=== PATIENT | female | born 1965 | race Caucasian/White ===

== ENCOUNTER → 2016-08-25 | Outpatient (CLI) | payer MEDICARE, MEDICAID | LOC: WI 08:05 | PROVIDERS: ATTEND Student in an Organized Health Care Education/Training Program | DX: Z12.31 Encounter for screening mammogram for malignant neoplasm of breast (principal); M89.9 Disorder of bone, unspecified | CPT/HCPCS: 77080; G0202; 77067 ==

== ENCOUNTER 2016-12-15 10:42 | Emergency (ER) | payer MEDICARE, MEDICAID ==
[2016-12-15] MEDS ORDERED: ASPIRIN 81 MG TABLET, CHEWABLE PO ONE (12:05)
[2016-12-15] MEDS ORDERED: METOCLOPRAMIDE HCL ORAL SOLN 10 MG/10 ML UDCUP PO ONE (12:07)
[2016-12-15] MEDS ORDERED: MAG HYDROX/AL HYDROX/SIMETH SUSP 30 ML UDCUP PO ONE (12:07)
[2016-12-15] MEDS ORDERED: LIDOCAINE 2% VISCOUS SOLN 20 ML UDCUP PO ONE (12:07)
--- NOTE | 2016-12-15 12:07 | ER Document Report ---
ED Medical Screen (RME) - General Chief Complaint: Chest Pain Stated Complaint: CHEST PAIN/NAUSEA Time Seen by Provider: 12/15/16 11:59 Mode of Arrival: Ambulatory Information source: Patient TRAVEL OUTSIDE OF THE [place] IN LAST 30 DAYS: No - HPI Patient complains to provider of: chest pain Notes: 12/15/16 12:06 Is a 51-year-old female with a history of depression, high cholesterol, brain tumor, obstructive sleep apnea, who presents to the emergency room complaining of chest pain that started Thursday evening, radiates to her neck and her left arm, she reports a nonproductive cough, increased acid production and belching, she denies shortness of breath, but states that her chest pain worsens when she lays flat, patient has a history of similar symptoms previously in December 2015 at which time she was admitted to this hospital and evaluated for pain, cardiac enzymes 3 were negative at the time EKG is a normal sinus rhythm with no signs of acute ischemia - Related Data Allergies/Adverse Reactions: morphine [Morphine] Adverse Reaction (Severe, Verified 12/15/16 10:48) Cardiac arrest fluoxetine Adverse Reaction (Intermediate, Verified 12/15/16 10:48) feels weird Past Medical History - Past Medical History Cardiac Medical History: Reports: Hx Hypertension Denies: Hx Coronary Artery Disease, Hx Heart Attack Pulmonary Medical History: Reports: Hx Asthma - ON ALBUTEROL/SYMBICORT, Hx Bronchitis, Hx COPD, Hx Pneumonia Neurological Medical History: Reports: Hx Migraine. Denies: Hx Cerebrovascular Accident, Hx Seizures Renal/ Medical History: Denies: Hx Peritoneal Dialysis GI Medical History: Reports: Hx Gastroesophageal Reflux Disease Musculoskeltal Medical History: Reports Hx Arthritis Psychiatric Medical History: Reports: Hx Anxiety, Hx Depression Past Surgical History: Reports: Hx Abdominal Surgery - Ex lap for SBO, Hx Hysterectomy, Hx Neurologic Surgery - Craniotomy for benign brain mass - Immunizations Hx Diphtheria, Pertussis, Tetanus Vaccination: Yes Physical Exam - Vital signs Vitals: Temp Pulse Resp BP Pulse Ox 98.4 F 98 18 139/88 H 98 12/15/16 10:48 12/15/16 10:48 12/15/16 10:48 12/15/16 10:48 12/15/16 10:48 Course - Vital Signs Vital signs: Temp Pulse Resp BP Pulse Ox 98.4 F 98 18 139/88 H 98 12/15/16 10:48 12/15/16 10:48 12/15/16 10:48 12/15/16 10:48 12/15/16 10:48
--- NOTE | 2016-12-15 12:40 | RADIOLOGY REPORT (SQ) ---
EXAM DESCRIPTION: CHEST PA/LAT COMPLETED DATE/TIME: 12/15/2016 12:31 pm REASON FOR STUDY: cp COMPARISON: 01/13/2016 EXAM PARAMETERS: NUMBER OF VIEWS: two views TECHNIQUE: Digital Frontal and Lateral radiographic views of the chest acquired. RADIATION DOSE: NA LIMITATIONS: none FINDINGS: LUNGS AND PLEURA: No opacities, masses or pneumothorax. No pleural effusion. MEDIASTINUM AND HILAR STRUCTURES: No masses or contour abnormalities. HEART AND VASCULAR STRUCTURES: Heart normal size. No evidence for failure. BONES: No acute findings. HARDWARE: None in the chest. OTHER: No other significant finding. IMPRESSION: NO SIGNIFICANT RADIOGRAPHIC FINDING IN THE CHEST. TECHNICAL DOCUMENTATION: JOB ID: [id number] [employer]- All Rights Reserved
[2016-12-15 13:15] LABS: ABSOLUTE BASOPHILS # (AUTO) 0.1 10^3/uL (0.0-0.2); ABSOLUTE EOSINOPHILS # (AUTO) 0.2 10^3/uL (0.0-0.6); ABSOLUTE LYMPHOCYTES (AUTO) 1.5 10^3/uL (0.5-4.7); ABSOLUTE MONOCYTES (AUTO) 0.5 10^3/uL (0.1-1.4); ABSOLUTE NEUT (AUTO) 6.2 10^3/uL (1.7-8.2); BASOPHILS % (AUTO) 1.2 % (0-2); EOSINOPHILS % (AUTO) 1.8 % (0-6); HEMATOCRIT 42.3 % (36.0-47.0); HEMOGLOBIN 13.7 g/dL (12.0-15.5); HGB HCT DIFFERENCE -1.2; LYMPHOCYTES % (AUTO) 17.6 % (13-45); MEAN CORPUSCULAR HEMOGLOBIN 28.1 pg (27.0-33.4); MEAN CORPUSCULAR HGB CONC 32.4 g/dL (32.0-36.0); MEAN CORPUSCULAR VOLUME 87 fl (80-97); MONOCYTES % (AUTO) 5.8 % (3-13); RED BLOOD COUNT 4.87 10^6/uL (3.72-5.28); RED CELL DISTRIBUTION WIDTH 13.6 % (11.5-14.0); SEGMENTED NEUTROPHILS % (AUTO) 73.6 % (42-78); WHITE BLOOD COUNT 8.5 10^3/uL (4.0-10.5)
[2016-12-15 13:44] LABS: BLOOD UREA NITROGEN 9 mg/dL (7-20); CALCIUM 10.4 mg/dL (8.4-10.2); CREATININE RESULT 0.84 mg/dL (0.52-1.25); GLUCOSE 93 mg/dL (75-110)
[2016-12-15 13:45] LABS: ALANINE AMINOTRANSFERASE 33 U/L (9-52); ALBUMIN 4.8 g/dL (3.5-5.0); ALKALINE PHOSPHATASE 136 U/L (38-126); ANION GAP 14 (5-19); ASPARTATE AMINO TRANSFERASE 36 U/L (14-36); BILIRUBIN,DIRECT 0.4 mg/dL (0.0-0.4); BILIRUBIN,TOTAL 0.6 mg/dL (0.2-1.3); CARBON DIOXIDE 21 mmol/L (22-30); CHLORIDE 107 mmol/L (98-107); CREATINE KINASE 284 U/L (30-135); POTASSIUM 4.4 mmol/L (3.6-5.0)
[2016-12-15 13:50] LABS: CREATINE KINASE MB 2.07 ng/mL (<4.55)
[2016-12-15 13:54] LABS: TROPONIN I < 0.012 ng/mL
--- NOTE | 2016-12-15 15:43 | ER Document Report ---
ED Cardiac <VANNESAGEOFFREY - Last Filed: 12/15/16 15:46> - General Mode of Arrival: Ambulatory Information source: Patient TRAVEL OUTSIDE OF THE [place] IN LAST 30 DAYS: No - HPI Patient complains to provider of: Chest pain Chest pain radiation location: Left shoulder, Neck - left Associated symptoms: Other - see notes above <CAITIE HUGHES - Last Filed: 12/15/16 16:00> - General Chief Complaint: Chest Pain Stated Complaint: CHEST PAIN/NAUSEA Time Seen by Provider: 12/15/16 11:59 Notes: 51-year-old female with history of [place], hypertension, hyperlipidemia, and recurring benign pineal gland tumor presents to the ED complaining of left- sided chest pain that radiates to the left shoulder and up the left neck which started early yesterday. Patient reports that she was moving a kitchen table 5 days ago. Patient is also complaining of nausea and diarrhea for the past 2 days. Pain is exacerbated when laying flat. Patient also complaining of increasing heartburn secondary to GERD. Patient is on Dexilant and antacid for GERD. (CAITIE HUGHES) - Related Data Allergies/Adverse Reactions: morphine [Morphine] Adverse Reaction (Severe, Verified 12/15/16 10:48) Cardiac arrest fluoxetine Adverse Reaction (Intermediate, Verified 12/15/16 10:48) feels weird Past Medical History - General Information source: Patient - Social History Smoking Status: Unknown if Ever Smoked Family History: CAD Patient has suicidal ideation: No Patient has homicidal ideation: No - Past Medical History Cardiac Medical History: Reports: Hx Hypercholesterolemia, Hx Hypertension Pulmonary Medical History: Reports: Hx Asthma - ON ALBUTEROL/SYMBICORT, Hx Bronchitis, Hx COPD, Hx Pneumonia Neurological Medical History: Reports: Hx Migraine Renal/ Medical History: Denies: Hx Peritoneal Dialysis Malignancy Medical History: Reports: Other - Recurring benign pineal gland tumor GI Medical History: Reports: Hx Gastroesophageal Reflux Disease Musculoskeltal Medical History: Reports Hx Arthritis Psychiatric Medical History: Reports: Hx Anxiety, Hx Depression Past Surgical History: Reports: Hx Abdominal Surgery - Ex lap for SBO, Hx Hysterectomy, Hx Neurologic Surgery - Craniotomy for benign brain mass - Immunizations Hx Diphtheria, Pertussis, Tetanus Vaccination: Yes <CAITIE HUGHES - Last Filed: 12/15/16 16:00> Review of Systems - Review of Systems Constitutional: No symptoms reported EENT: No symptoms reported Cardiovascular: See HPI, Chest pain - Radiates to left shoulder and left neck Respiratory: No symptoms reported Gastrointestinal: See HPI, Diarrhea, Nausea Genitourinary: No symptoms reported Female Genitourinary: No symptoms reported Musculoskeletal: No symptoms reported Skin: No symptoms reported Hematologic/Lymphatic: No symptoms reported Neurological/Psychological: No symptoms reported -: Yes All other systems reviewed and negative <CAITIE HUGHES - Last Filed: 12/15/16 16:00> Physical Exam - General General appearance: Alert In distress: None - HEENT Head: Normocephalic, Atraumatic Eyes: Normal Extraocular movements intact: Yes Pupils: PERRL - Respiratory Respiratory status: No respiratory distress Chest status: Tender Breath sounds: Normal Chest palpation: Tender - Reproducible anterior left chest wall tenderness to palpation that radiates to the supraclaviular and deltoid area. No: Normal - Cardiovascular Rhythm: Regular Heart sounds: Normal auscultation - Abdominal Inspection: Normal Distension: No distension Tenderness: Nontender - Back Back: Normal - Extremities General upper extremity: Normal inspection, Normal ROM General lower extremity: Normal inspection, Normal ROM - Neurological Neuro grossly intact: Yes - Psychological Associated symptoms: Normal affect, Normal mood - Skin Skin Temperature: Warm Skin Moisture: Dry Skin Color: Normal <CAITIE HUGHES - Last Filed: 12/15/16 16:00> - Vital signs Vitals: Temp Pulse Resp BP Pulse Ox 98.4 F 98 18 139/88 H 98 12/15/16 10:48 12/15/16 10:48 12/15/16 10:48 12/15/16 10:48 12/15/16 10:48 Course - Laboratory Result Diagrams: 12/15/16 12:50 12/15/16 12:50 <GEOFFREY GRANADO - Last Filed: 12/15/16 15:46> - Laboratory Result Diagrams: 12/15/16 12:50 12/15/16 12:50 <CAITIE HUGHES - Last Filed: 12/15/16 16:00> - Vital Signs Vital signs: Temp Pulse Resp BP Pulse Ox 98.4 F 98 18 139/88 H 98 12/15/16 10:48 12/15/16 10:48 12/15/16 10:48 12/15/16 10:48 12/15/16 10:48 - Laboratory Laboratory results interpreted by me: 12/15/16 12:50 Carbon Dioxide 21 L Calcium 10.4 H Alkaline Phosphatase 136 H Creatine Kinase 284 H Discharge <GEOFFREY GRANADO - Last Filed: 12/15/16 15:46> <CAITIE HUGHES - Last Filed: 12/15/16 16:00> - Discharge Clinical Impression: Acute chest wall pain, Reflux esophagitis Additional Instructions: Chest Wall Pain: Your chest pain has been diagnosed as coming from the chest wall. This is often caused by straining the muscles or joints in the chest during physical activity, direct trauma, coughing, or vigorous vomiting. Persons with arthritis are especially prone to this type of pain, due to inflammation of the cartilage joints near the breast bone. Occasionally, no cause can be found. Rest from strenuous physical activity. This kind of chest pain is usually made worse by movement of the chest. Depending on the symptoms, we may prescribe medicine for pain, muscle relaxation, and antiinflammatory effects. If the pain is new, and seems to be due to muscle strain, cold packs can help. Otherwise, apply gentle warmth to the painful area for 15 minutes every hour or two. You should contact the doctor immediately if things change. Further evaluation is needed if you develop a fever or cough, if the nature of the pain changes, or if you become short of breath. Referrals: ARACELI PERSON, [NO LOCAL MD] - Follow up as needed Scribe Attestation: 12/15/16 15:47 I personally performed the services described in the documentation, reviewed and edited the documentation which was dictated to the scribe in my presence, and it accurately records my words and actions. (GEOFFREY GRANADO) Scribe Documentation - Scribe Written by Alysa:: Alysa Luu, 12/15/2016 1600 acting as scribe for :: Vannesa <CAITIE HUGHES - Last Filed: 12/15/16 16:00>
[2016-12-15 15:58] VITALS: BP 126/94
--- NOTE | 2016-12-15 17:58 | EKG REPORT ---
SEVERITY:- BORDERLINE ECG - SINUS RHYTHM BORDERLINE T ABNORMALITIES, DIFFUSE LEADS : Confirmed by: Lin Riddle MD 15-Dec-2016 17:57:28
== END 2016-12-15 15:58 | disposition home or self-care (01) ==
LOC: ER 10:42
DX: K21.0 Gastro-esophageal reflux disease with esophagitis (principal); R07.89 Other chest pain; R11.0 Nausea; I25.2 Old myocardial infarction; E78.5 Hyperlipidemia, unspecified; M25.552 Pain in left hip; M54.2 Cervicalgia; R19.7 Diarrhea, unspecified
CPT/HCPCS: 93005; 99285; 36415; 82553; 82550; 85025; 80053; 84484; 71020; 93010; A9270 ×2; J3490

== ENCOUNTER 2017-09-15 11:08 | Observation (INO) | payer MEDICARE, MEDICAID ==
[2017-09-15] MEDS ORDERED: METOCLOPRAMIDE HCL INJ/PF 10 MG/2 ML SDV IV ONE ×2 (11:32→18:30)
[2017-09-15] MEDS ORDERED: DIPHENHYDRAMINE HCL 50 MG/ML VIAL IV ONE (11:32)
--- NOTE | 2017-09-15 11:34 | ER Document Report ---
ED Medical Screen (RME) - General Chief Complaint: Headache Stated Complaint: fevers,HEADACHES Time Seen by Provider: 09/15/17 11:31 Mode of Arrival: Wheelchair Information source: Patient Notes: This is a 52-year-old female presents to the ER with nausea, headache for the past 3 days. Patient does report subjective chills. She states she is not checked her temperature but she has felt like she may have had fever. She does report having [employer] in the past for a benign cranial mass which had been recurrent. TRAVEL OUTSIDE OF THE [place] IN LAST 30 DAYS: No - Related Data Allergies/Adverse Reactions: morphine [Morphine] Adverse Reaction (Severe, Verified 09/15/17 11:09) Cardiac arrest fluoxetine Adverse Reaction (Intermediate, Verified 09/15/17 11:09) feels weird Past Medical History - Social History Chew tobacco use (# tins/day): No Frequency of alcohol use: None Drug Abuse: None - Past Medical History Cardiac Medical History: Reports: Hx Hypercholesterolemia, Hx Hypertension Denies: Hx Coronary Artery Disease, Hx Heart Attack Pulmonary Medical History: Reports: Hx Asthma - ON ALBUTEROL/SYMBICORT, Hx Bronchitis, Hx COPD, Hx Pneumonia Neurological Medical History: Reports: Hx Migraine. Denies: Hx Cerebrovascular Accident, Hx Seizures Renal/ Medical History: Denies: Hx Peritoneal Dialysis GI Medical History: Reports: Hx Gastroesophageal Reflux Disease Musculoskeltal Medical History: Reports Hx Arthritis Psychiatric Medical History: Reports: Hx Anxiety, Hx Depression Past Surgical History: Reports: Hx Abdominal Surgery - Ex lap for SBO, Hx Hysterectomy, Hx Neurologic Surgery - Craniotomy for benign brain mass - Immunizations Hx Diphtheria, Pertussis, Tetanus Vaccination: Yes Physical Exam - Vital signs Vitals: Temp Pulse Resp BP Pulse Ox 98.5 F 81 16 131/92 H 98 09/15/17 11:11 09/15/17 11:11 09/15/17 11:11 09/15/17 11:11 09/15/17 11:11 Course - Vital Signs Vital signs: Temp Pulse Resp BP Pulse Ox 98.5 F 81 16 131/92 H 98 09/15/17 11:11 09/15/17 11:11 09/15/17 11:11 09/15/17 11:11 09/15/17 11:11
--- NOTE | 2017-09-15 12:07 | RADIOLOGY REPORT (SQ) ---
EXAM DESCRIPTION: CT HEAD WITHOUT COMPLETED DATE/TIME: 09/15/2017 11:57 am REASON FOR STUDY: [place], h/o mass COMPARISON: May 2014 TECHNIQUE: Axial images acquired through the brain without intravenous contrast. Images reviewed wi th bone, brain and subdural windows. All Images stored on PACS. All CT scanners at this facility use dose modulation, iterative reconstruction, and/or weight based d osing when appropriate to reduce radiation dose to as low as reasonably achievable (ALARA). [facility]: Dose Right [facility]: CareDose [facility]: Dose Right [facility]: Teradose 4D [facility]: [employer] RADIATION DOSE: mGy. LIMITATIONS: None. FINDINGS: VENTRICLES: Normal size and contour. CEREBRUM: No masses. No hemorrhage. No midline shift. No evidence for acute infarction. Normal gra y/white matter differentiation. No areas of low density in the white matter. CEREBELLUM: No masses. No hemorrhage. No alteration of density. No evidence for acute infarction. EXTRAAXIAL SPACES: No fluid collections. No masses. ORBITS AND GLOBE: No intra- or extraconal masses. Normal contour of globe without masses. CALVARIUM: No fracture. The previously described surgical changes with previous occipital craniotomy appears stable. PARANASAL SINUSES: No fluid or mucosal thickening. SOFT TISSUES: No mass or hematoma. OTHER: No other significant finding. IMPRESSION: No significant intracranial abnormalities were identified. Other findings as noted abov e EVIDENCE OF ACUTE STROKE: NO. COMMENT: Quality ID # [id number]: Final reports with documentation of one or more dose reduction techniques (e.g., Automated exposure control, adjustment of the mA and/or kV according to patient size, use of iterative reconstruction technique) TECHNICAL DOCUMENTATION: JOB ID: [id number] [employer]- All Rights Reserved Reading location - IP/workstation name: [email or web address]
[2017-09-15 12:08] LABS: ABSOLUTE BASOPHILS # (AUTO) 0.1 10^3/uL (0.0-0.2); ABSOLUTE EOSINOPHILS # (AUTO) 0.1 10^3/uL (0.0-0.6); ABSOLUTE LYMPHOCYTES (AUTO) 1.2 10^3/uL (0.5-4.7); ABSOLUTE MONOCYTES (AUTO) 0.3 10^3/uL (0.1-1.4); ABSOLUTE NEUT (AUTO) 4.2 10^3/uL (1.7-8.2); EOSINOPHILS % (AUTO) 2.1 % (0-6); HEMATOCRIT 44.1 % (36.0-47.0); HEMOGLOBIN 14.7 g/dL (12.0-15.5); MEAN CORPUSCULAR HEMOGLOBIN 28.2 pg (27.0-33.4); MEAN CORPUSCULAR HGB CONC 33.4 g/dL (32.0-36.0); MEAN CORPUSCULAR VOLUME 84 fl (80-97); MONOCYTES % (AUTO) 5.7 % (3-13); PLATELET COUNT 400 10^3/uL (150-450); RED BLOOD COUNT 5.23 10^6/uL (3.72-5.28); RED CELL DISTRIBUTION WIDTH 14.6 % (11.5-14.0); SEGMENTED NEUTROPHILS % (AUTO) 70.2 % (42-78); TOTAL CELLS COUNTED % (AUTO) 100 %
[2017-09-15 12:09] LABS: INTERNATIONAL RATION (INR) 0.86; PROTHROMBIN TIME 12.4 SEC (11.4-15.4)
[2017-09-15 12:26] LABS: ALANINE AMINOTRANSFERASE 33 U/L (9-52); ALBUMIN 4.7 g/dL (3.5-5.0); ALKALINE PHOSPHATASE 115 U/L (38-126); ANION GAP 13 (5-19); ASPARTATE AMINO TRANSFERASE 30 U/L (14-36); BILIRUBIN,DIRECT 0.4 mg/dL (0.0-0.4); BILIRUBIN,TOTAL 0.4 mg/dL (0.2-1.3); BLOOD UREA NITROGEN 10 mg/dL (7-20); CALCIUM 10.6 mg/dL (8.4-10.2); CARBON DIOXIDE 23 mmol/L (22-30); CHLORIDE 107 mmol/L (98-107); GLUCOSE 106 mg/dL (75-110); POTASSIUM 4.8 mmol/L (3.6-5.0); SODIUM 142.9 mmol/L (137-145); TOTAL PROTEIN 7.7 g/dL (6.3-8.2)
[2017-09-15] MEDS ORDERED: NORMAL SALINE 1000 ML 1,000 ML IV ONE (13:13)
[2017-09-15] MEDS ORDERED: ONDANSETRON HCL INJ/PF 4 MG/2 ML SDV IV ONE (13:13)
--- NOTE | 2017-09-15 13:22 | ER Document Report ---
ED General - General Chief Complaint: Headache Stated Complaint: fevers,HEADACHES Time Seen by Provider: 09/15/17 11:31 Mode of Arrival: Wheelchair Information source: Patient, Parent TRAVEL OUTSIDE OF THE [place] IN LAST 30 DAYS: No - HPI Notes: 52-year-old female with a past medical history of depression, hyperlipidemia and benign tumors presents today with complaints of a headache, nausea and chills for the last 2 days. 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 Has not seen her neurologist in 2 years, last MRI was 2 years ago. Patient tried [id number] ibuprofen at 08 100 this morning without relief. Patient reports she feels lethargic, tired. Patient does not have a thermometer at home but reports she felt "feverish". Denies fevers, chills, chest pain,palpitations, shortness of breath, dyspnea, vomiting, diarrhea, abdominal pain, hematuria,blurred vision, double vision, loss of vision, speech changes, LH, dizziness, syncope, headaches, wheezing, ST, URI, neck pain, weakness, bowel or bladder dysfunction, saddle anesthesia, muscle paralysis, weakness in bilateral upper or lower extremities equally or rash. Denies IV drug use. - Related Data Allergies/Adverse Reactions: morphine [Morphine] Adverse Reaction (Severe, Verified 09/15/17 11:09) Cardiac arrest fluoxetine Adverse Reaction (Intermediate, Verified 09/15/17 11:09) feels weird Past Medical History - General Information source: Patient - Social History Smoking Status: Former Smoker Chew tobacco use (# tins/day): No Frequency of alcohol use: None Drug Abuse: None Family History: CAD Patient has suicidal ideation: No Patient has homicidal ideation: No - Past Medical History Cardiac Medical History: Reports: Hx Hypercholesterolemia, Hx Hypertension Denies: Hx Coronary Artery Disease, Hx Heart Attack Pulmonary Medical History: Reports: Hx Asthma - ON ALBUTEROL/SYMBICORT, Hx Bronchitis, Hx COPD, Hx Pneumonia Neurological Medical History: Reports: Hx Migraine. Denies: Hx Cerebrovascular Accident, Hx Seizures Renal/ Medical History: Denies: Hx Peritoneal Dialysis GI Medical History: Reports: Hx Gastroesophageal Reflux Disease Musculoskeltal Medical History: Reports Hx Arthritis Psychiatric Medical History: Reports: Hx Anxiety, Hx Depression Past Surgical History: Reports: Hx Abdominal Surgery - Ex lap for SBO, Hx Hysterectomy, Hx Neurologic Surgery - Craniotomy for benign brain mass - Immunizations Hx Diphtheria, Pertussis, Tetanus Vaccination: Yes Review of Systems - Review of Systems Notes: REVIEW OF SYSTEMS: CONSTITUTIONAL : reports fever. chills, or sweats. Denies recent illness. EENT: Denies eye, ear, throat, or mouth pain or symptoms. Denies nasal or sinus congestion or discharge. Denies throat, tongue, or mouth swelling or difficulty swallowing. CARDIOVASCULAR: Denies chest pain. Denies palpitations or racing or irregular heart beat. Denies ankle edema. RESPIRATORY: Denies cough, cold, or chest congestion. Denies shortness of breath, difficulty breathing, or wheezing. GASTROINTESTINAL: Denies abdominal pain or distention. Denies nausea, vomiting , or diarrhea. Denies blood in vomitus, stools, or per rectum. Denies black, tarry stools. Denies constipation. GENITOURINARY: Denies difficulty urinating, painful urination, burning, frequency, blood in urine, or discharge. FEMALE GENITOURINARY: Denies vaginal bleeding, heavy or abnormal periods, irregular periods. Denies vaginal discharge or odor. MUSCULOSKELETAL: Denies back or neck pain or stiffness. Denies joint pain or swelling. SKIN: Denies rash, lesions or sores. HEMATOLOGIC : Denies easy bruising or bleeding. LYMPHATIC: Denies swollen, enlarged glands. NEUROLOGICAL: Denies confusion or altered mental status. Denies passing out or loss of consciousness. Denies dizziness or lightheadedness. Reports headache. Denies weakness or paralysis or loss of use of either side. Denies problems with gait or speech. Denies sensory loss, numbness, or tingling. Denies seizures. PSYCHIATRIC: Denies anxiety or stress. Denies depression, suicidal ideation, or homicidal ideation. ALL OTHER SYSTEMS REVIEWED AND NEGATIVE. PHYSICAL EXAMINATION: GENERAL: Well-appearing, well-nourished and in no acute distress. HEAD: Atraumatic, normocephalic. EYES: Right pupil 3 mm, left pupil 2 mm reactive. Extraocular movements intact , conjunctiva are normal. ENT: Nares patent, oropharynx clear without exudates. Moist mucous membranes. NECK: Normal range of motion, supple without lymphadenopathy LUNGS: Breath sounds clear to auscultation bilaterally and equal. No wheezes rales or rhonchi. HEART: Regular rate and rhythm without murmurs ABDOMEN: Soft, nontender, nondistended abdomen. No guarding, no rebound. No masses appreciated. Female : deferred Musculoskeletal: Normal range of motion, no pitting or edema. No cyanosis. NEUROLOGICAL: Cranial nerves grossly intact. Noted aphasia, left-sided ataxia, and left pronator drift, left leg, left-sided weakness, retail wireless sales representative 3 out of 5 on the left, 5 out of 5 on right bilateral upper extremities, bilateral lower extremities strength 5 out of 5 on right, 3 out of 5 on left. Noted dysmetria on left. Orientated 3. Normal motor and sensory function in bilateral upper and lower extremities equally. No facial droop noted. Tongue midline. Able to raise eyebrows and trunk shoulders. 2 point discrimination noted. No peripheral vision loss. PSYCH: Normal mood, normal affect. SKIN: Warm, Dry, normal turgor, no rashes or lesions noted. Dictation was performed using [employer] voice recognition software Physical Exam - Vital signs Vitals: Temp Pulse Resp BP Pulse Ox 98.5 F 81 16 131/92 H 98 09/15/17 11:11 09/15/17 11:11 09/15/17 11:11 09/15/17 11:11 09/15/17 11:11 Course - Re-evaluation Re-evalutation: A otherwise healthy 52-year-old female with a history of benign tumors presents today for complaints of headache, neck pain, nausea and fevers and chills 2 days. On clinical examination patient had focal neurological deficits with concerns of possible posterior stroke. MRA MRI of brain negative for any acute findings for stroke. CT head negative. CHARGER OPERATOR negative for any electrolyte this function, liver dysfunction. Pressures checked and 9, on the left 18, rate 17 to rule out any acute angle glaucoma. Consulted with Dr. Sarah Farnsworth, hospitalist, regarding admission for TIA, she would like this provider to consult with neurologist prior to admission to see if patient would require any other interventions. On reevaluation at 1600, patient's focal neurological deficits have all resolved. She is no longer aphasic, no ataxia noted, rate upper and lower extremities with equal strength bilaterally equally. No pronator drift noted on evaluation. Baby aspirin was held off due to patient needing a lumbar puncture due to patient having fevers, chills along with neck pain for the last 2 days even though she is currently without any leukocytosis and is afebrile Consulted with Dr. Chiu, neurologist at [facility] in [place], [place], consulted regarding patient's status at 1630. She advised to order a CTA neck with contrast and placed on baby aspirin and she likely had a posterior TIA. Patient was accepted into the IMCU unit for TIA. Vital signs remained stable. All questions and concerns from patient and regarding her admission answered by this provider. CSF studies normal. Patient verbalized an understanding of this and agree with plan of care. - Vital Signs Vital signs: Temp Pulse Resp BP Pulse Ox 97.6 F 81 19 130/75 H 98 09/15/17 16:22 09/15/17 11:11 09/15/17 16:22 09/15/17 16:22 09/15/17 16:22 - Laboratory Result Diagrams: 09/15/17 11:48 09/15/17 11:48 Laboratory results interpreted by me: 09/15/17 09/15/17 09/15/17 11:48 11:48 16:57 RDW 14.6 H Calcium 10.6 H Urine Blood SMALL H Discharge - Discharge Clinical Impression: TIA (transient ischemic attack) Qualifiers: Transient cerebral ischemia type: other Qualified Code(s): G45.8 - Other transient cerebral ischemic attacks and related syndromes Condition: Good Disposition: ADMITTED INPATIENT Admitting Provider: Hospitalist - Dr. Sarah Farnsworth Unit Admitted: [facility]
--- NOTE | 2017-09-15 14:49 | RADIOLOGY REPORT (SQ) ---
EXAM DESCRIPTION: MRA HEAD WITHOUT COMPLETED DATE/TIME: 09/15/2017 2:41 pm REASON FOR STUDY: aphasia,L pronator drift,L weakness, hx tumors COMPARISON: None. TECHNIQUE: Axial 3-D [id number] acquisition imaging performed through the brain in the area of t he [place]. Images reformatted using 3-D MIPS. LIMITATIONS: None. FINDINGS: SOURCE IMAGES: No unexpected findings on source images. No large masses. 3-D MIP: No aneurysm. No occlusions. No significant stenosis. OTHER: No other significant finding. IMPRESSION: NORMAL MRA OF THE [place]. TECHNICAL DOCUMENTATION: JOB ID: [id number] [employer]- All Rights Reserved Reading location - IP/workstation name: [email or web address]
--- NOTE | 2017-09-15 15:09 | RADIOLOGY REPORT (SQ) ---
EXAM DESCRIPTION: MRI HEAD COMBO COMPLETED DATE/TIME: 09/15/2017 2:53 pm REASON FOR STUDY: aphasia,L pronator drift,L weakness, hx tumors COMPARISON: CT brain 09/15/2017 MRA exam [place] of [place] 09/15/2017 TECHNIQUE: Multiplanar imaging includes noncontrasted T1, T2, FLAIR, diffusion with ADC map and post gadolinium contrast T1 sequences. Images stored on PACS. CONTRAST TYPE AND DOSE: 15 mL Multihance. RENAL FUNCTION: GFR > 60. LIMITATIONS: None. FINDINGS: ANATOMY: Normal vascular flow voids. Pituitary fossa normal. CSF SPACES: Normal in size and contour. No hemorrhage. CEREBRUM: Sulci and gyri normal in size and contour. Linear band of increased white matter signal on FLAIR imaging in the right frontal region, with overlying calvarial defect likely a tract from intra cranial pressure monitor used during prior surgery. No evidence of subacute hemorrhage, mass, or extr aaxial fluid collection. No abnormal enhancement post contrast. POSTERIOR FOSSA: Patient is post prior surgery for decompression of a Chiari 1 malformation. There i s been resection of the midline occipital bone along the posterior foramen magnum, and placement of a small titanium plate. Adjacent mild encephalomalacia of the posterior cerebellar midline structures . Normal appearance of the medulla and minnie, without mass effect on axial T2 images. Adequate CSF ar ound the medulla and minnie. No hemorrhage. No edema, masses, or mass effect. Internal auditory canals, cerebellopontine angles, m astoids normal. No abnormal enhancement post contrast. DIFFUSION IMAGING: Negative for acute or subacute infarction. ORBITS: No masses. Globes normal. PARANASAL SINUSES: No fluid levels. Mucosa normal. OTHER: No other significant finding. IMPRESSION: POST SUBOCCIPITAL CRANIOTOMY FOR DECOMPRESSION OF A CHIARI I MALFORMATION. OTHERWISE, UNREMARKABLE MRI OF THE BRAIN WITHOUT AND WITH INTRAVENOUS GADOLINIUM CONTRAST. EVIDENCE OF ACUTE STROKE: NO. TECHNICAL DOCUMENTATION: JOB ID: [id number] [employer]- All Rights Reserved Reading location - IP/workstation name: [email or web address]
[2017-09-15] MEDS ORDERED: ASPIRIN 325 MG TABLET PO ONE (17:02)
[2017-09-15] MEDS ORDERED: ACETAMINOPHEN 325 MG TABLET PO PRN (17:19)
[2017-09-15] MEDS ORDERED: ZOLPIDEM TARTRATE 5 MG TABLET PO PRN (17:19)
[2017-09-15] MEDS ORDERED: ONDANSETRON HCL INJ/PF 4 MG/2 ML SDV IV PRN (17:19)
--- NOTE | 2017-09-15 17:27 | RADIOLOGY REPORT (SQ) ---
EXAM DESCRIPTION: LUMBAR PUNCTURE COMPLETED DATE/TIME: 09/15/2017 5:14 pm REASON FOR STUDY: PAIGE, L sided weakness, stroke like symptoms COMPARISON: MRI brain, MRA exam [place] of [place] 09/15/2017 CT brain 09/23/2017 FLUOROSCOPY TIME: 9 seconds One digital images saved to PACS. TECHNIQUE: Fluoroscopic guided lumbar puncture. LIMITATIONS: None. PROCEDURE: After written consent and assessment were obtained, the patient was brought into the fluo roscopy room and placed prone on the table. The patient's lower back was prepped in a sterile fashio n and an entry site was selected under live fluoroscopic guidance. The entry site was anesthetized wi th 3 mL 1% lidocaine. A 22 gauge needle was advanced through the skin and into the thecal sac at the right paracentral L3-4 level. After approximately 6.5 ml was drained, the needle was removed and a st erile bandage was placed of the site. Specimens were sent to the lab for testing. A fluoroscopic sp ot image was saved to PACS confirming level access. FINDINGS: Clear CSF Opening pressure 15 cm of water. IMPRESSION: Lumbar puncture under fluoroscopy. No immediate complication. COMMENT: Patient medication list reviewed: Yes- Quality ID# 130:Eligible professional attests to doc umenting in the medical record they obtained, updated, or reviewed the patient's current medications. . Quality ID 145: Final reports for procedures using fluoroscopy that document radiation exposure bertha kimebrly, or exposure time and number of fluorographic images (if radiation exposure indices are not avail able) TECHNICAL DOCUMENTATION: JOB ID: [id number] [employer]- All Rights Reserved Reading location - IP/workstation name: [email or web address]-RR
[2017-09-15 17:32] LABS: APPEARANCE,URINE CLEAR; BILIRUBIN,URINE NEGATIVE (NEGATIVE); COLOR,URINE STRAW; GLUCOSE, URINE NEGATIVE (NEGATIVE); KETONES,URINE NEGATIVE (NEGATIVE); LEUKOCYTE ESTERASE,URINE NEGATIVE (NEGATIVE); NITRITE,URINE NEGATIVE (NEGATIVE); PROTEIN,URINE NEGATIVE (NEGATIVE); URINE SPECIFIC GRAVITY 1.014; UROBILINOGEN,URINE NEGATIVE mg/dL (<2.0)
[2017-09-15 17:46] LABS: URINE AMPHETAMINES SCREEN NEGATIVE; URINE BARBITURATES SCREEN NEGATIVE; URINE BENZODIAZEPINES SCREEN NEGATIVE; URINE COCAINE SCREEN NEGATIVE; URINE MARIJUANA (THC) SCREEN NEGATIVE; URINE METHADONE SCREEN NEGATIVE; URINE PHENCYCLIDINE SCREEN NEGATIVE
[2017-09-15 18:06] LABS: CSF TUBE NUMBER 3
[2017-09-15 18:07] LABS: APPEARANCE ALL TUBES CLEAR; COLOR ALL TUBES COLORLESS; RED BLOOD CELL,CSF 224 /uL (0-10); VOLUME TUBE 1 1.5 CC; VOLUME TUBE 2 1.5 CC; VOLUME TUBE 3 1.5 CC; VOLUME TUBE 4 1.5 CC
[2017-09-15] MEDS ORDERED: NORMAL SALINE 1000 ML 1,000 ML IV PRN (18:07)
[2017-09-15 18:08] LABS: WHITE BLOOD CELL,CSF 1 /uL (0-5)
[2017-09-15 18:19] LABS: GLUCOSE,CSF 57 mg/dL (40-70); PROTEIN,CSF 51 mg/dL (12-60)
--- NOTE | 2017-09-15 18:29 | PDOC H&P ---
History of Present Illness Admission Date/PCP: ARACELI PERSON DO September 15, 2017 Patient complains of: Headache for the past 3 days History of Present Illness: CIERRA SANTILLAN is a 52 year old female presented to ED complaining of headache mostly localized to the back of her head. Patient complained of fever , photophobia and nausea. She admits also having generalized weakness. She does have a history of migraine. Patient reports history of brain tumors and had undergone surgery. She is to follow-up with her neurologist (cannot remember his name) in November to see if she needs any further intervention. Patient admits that she is under a lot of stress at home because they are about 8 people living in her household and do not want to move out. Patient denies cough, shortness of breath, chest pain, abdominal pain. Patient had extensive workup in the emergency room since at the beginning the possibility of of a stroke was entertained. Also an LP was obtained. After consulting with [facility] neurologist a CTA of the neck was recommended to evaluate for the possibility of a posterior stroke which is still pending. Considering presentation our service was contacted and prompted to admit. Past Medical History Cardiac Medical History: Reports: Hyperlipidema, Hypertension Denies: Coronary Artery Disease, Myocardial Infarction Pulmonary Medical History: Reports: Asthma - ON ALBUTEROL/SYMBICORT, Bronchitis , Chronic Obstructive Pulmonary Disease (COPD), Pneumonia Neurological Medical History: Reports: Migraine, Other - Chiari malformation Denies: Seizures Endocrine Medical History: Reports: None Renal/ Medical History: Reports: None Malignancy Medical History: Reports: None GI Medical History: Reports: Gastroesophageal Reflux Disease Musculoskeltal Medical History: Reports: Arthritis Skin Medical History: Reports: None Psychiatric Medical History: Reports: Depression Traumatic Medical History: Reports: None Hematology: Denies: Anemia Infectious Medical History: Reports: None Past Surgical History Past Surgical History: Reports: Hysterectomy, Other - SBO Social History Information Source: Patient Lives with: Family Smoking Status: Former Smoker Frequency of Alcohol Use: None Hx Recreational Drug Use: No Drugs: None Hx Prescription Drug Abuse: No - Advance Directive Resuscitation Status: Full Code Family History Family History: CAD, DM, Hypertension, Malignancy Parental Family History Reviewed: Yes Children Family History Reviewed: Yes Sibling(s) Family History Reviewed.: Yes Medication/Allergy Home Medications: Dexlansoprazole [Dexilant 60 mg Capsule] 60 mg PO DAILY 04/04/13 Aspirin [Ecotrin 81 mg EC Tablet] 81 mg PO DAILY #30 tabec 01/14/16 Rosuvastatin Calcium [Crestor 20 mg Tablet] 20 mg PO QHS #30 tablet 01/14/16 Venlafaxine HCl [Effexor 75 mg Tablet] 150 mg PO DAILY #30 tablet 01/14/16 Allergies/Adverse Reactions: morphine [Morphine] Adverse Reaction (Severe, Verified 09/15/17 11:09) Cardiac arrest fluoxetine Adverse Reaction (Intermediate, Verified 09/15/17 11:09) feels weird Review of Systems Constitutional: PRESENT: chills, fever(s). ABSENT: weakness Eyes: PRESENT: visual disturbances Ears: ABSENT: hearing changes Nose, Mouth, and Throat: ABSENT: mouth pain, sore throat Cardiovascular: ABSENT: chest pain, dyspnea on exertion, edema, orthropnea Respiratory: ABSENT: cough, dyspnea Gastrointestinal: ABSENT: abdominal pain, nausea, vomiting Genitourinary: ABSENT: dysuria, hematuria Musculoskeletal: ABSENT: back pain, joint swelling, muscle weakness Integumentary: ABSENT: diaphoresis, lesions Neurological: PRESENT: abnormal speech, weakness. ABSENT: abnormal gait, abnormal movements, focal weakness Psychiatric: PRESENT: anxiety, depression Physical Exam Vital Signs: Temp Pulse Resp BP Pulse Ox 97.6 F 81 19 130/75 H 98 09/15/17 16:22 09/15/17 11:11 09/15/17 16:22 09/15/17 16:22 09/15/17 16:22 Intake & Output 09/14/17 09/15/17 09/16/17 06:59 06:59 06:59 Weight 71.8 kg General appearance: PRESENT: cooperative, well-developed, well-nourished Head exam: PRESENT: atraumatic, normocephalic Eye exam: PRESENT: conjunctival injection, EOMI, PERRLA, other - Minimal anisocoria. ABSENT: nystagmus, periorbital swelling Mouth exam: PRESENT: moist, neck supple, other - Tenderness upon palpation of paracervical muscles. FROM Neck exam: PRESENT: full ROM, tracheal deviation. ABSENT: JVD, lymphadenopathy , meningismus, tenderness Respiratory exam: PRESENT: clear to auscultation dean Cardiovascular exam: PRESENT: RRR. ABSENT: diastolic murmur, systolic murmur Vascular exam: PRESENT: normal capillary refill GI/Abdominal exam: PRESENT: normal bowel sounds, soft. ABSENT: tenderness Extremities exam: PRESENT: full ROM. ABSENT: pedal edema Musculoskeletal exam: PRESENT: ambulatory Neurological exam: PRESENT: alert, awake, oriented to person, oriented to place , oriented to time, oriented to situation, CN II-XII grossly intact Psychiatric exam: PRESENT: anxious Skin exam: PRESENT: normal color Results Laboratory Results: 09/15/17 11:48 09/15/17 11:48 09/15/17 09/15/17 09/15/17 11:48 11:48 15:21 WBC 6.0 RBC 5.23 Hgb 14.7 Hct 44.1 MCV 84 MCH 28.2 MCHC 33.4 RDW 14.6 H Plt Count 400 Seg Neutrophils % 70.2 Lymphocytes % 20.0 Monocytes % 5.7 Eosinophils % 2.1 Basophils % 2.0 Absolute Neutrophils 4.2 Absolute Lymphocytes 1.2 Absolute Monocytes 0.3 Absolute Eosinophils 0.1 Absolute Basophils 0.1 Sodium 142.9 Potassium 4.8 Chloride 107 Carbon Dioxide 23 Anion Gap 13 BUN 10 Creatinine 0.68 Est GFR ( Amer) > 60 Est GFR (Non-Af Amer) > 60 Glucose 106 Lactic Acid 0.7 Calcium 10.6 H Total Bilirubin 0.4 AST 30 ALT 33 Alkaline Phosphatase 115 Total Protein 7.7 Albumin 4.7 Urine Color Urine Appearance Urine pH Ur Specific [place] Urine Protein Urine Glucose (UA) Urine Ketones Urine Blood Urine Nitrite Ur Leukocyte Esterase Urine WBC (Auto) Urine RBC (Auto) 09/15/17 16:57 WBC RBC Hgb Hct MCV MCH MCHC RDW Plt Count Seg Neutrophils % Lymphocytes % Monocytes % Eosinophils % Basophils % Absolute Neutrophils Absolute Lymphocytes Absolute Monocytes Absolute Eosinophils Absolute Basophils Sodium Potassium Chloride Carbon Dioxide Anion Gap BUN Creatinine Est GFR ( Amer) Est GFR (Non-Af Amer) Glucose Lactic Acid Calcium Total Bilirubin AST ALT Alkaline Phosphatase Total Protein Albumin Urine Color STRAW Urine Appearance CLEAR Urine pH 5.0 Ur Specific [place] 1.014 Urine Protein NEGATIVE Urine Glucose (UA) NEGATIVE Urine Ketones NEGATIVE Urine Blood SMALL H Urine Nitrite NEGATIVE Ur Leukocyte Esterase NEGATIVE Urine WBC (Auto) 0 Urine RBC (Auto) 0 Impressions: Head CT 09/15/17 11:33 IMPRESSION: No significant intracranial abnormalities were identified. Other findings as noted above EVIDENCE OF ACUTE STROKE: NO. Brain MRI with MRA 09/15/17 13:11 IMPRESSION: NORMAL MRA OF THE [place]. Head MRI 09/15/17 13:11 IMPRESSION: POST SUBOCCIPITAL CRANIOTOMY FOR DECOMPRESSION OF A CHIARI I MALFORMATION. OTHERWISE, UNREMARKABLE MRI OF THE BRAIN WITHOUT AND WITH INTRAVENOUS GADOLINIUM CONTRAST. EVIDENCE OF ACUTE STROKE: NO. Lumbar Puncture 09/15/17 16:20 IMPRESSION: Lumbar puncture under fluoroscopy. No immediate complication. Assessment & Plan - Diagnosis (1) Headache Qualifiers: Headache type: tension-type Headache chronicity pattern: episodic headache Intractability: not intractable Qualified Code(s): G44.219 - Episodic tension-type headache, not intractable Is this a current diagnosis for this admission?: Yes Plan: Patient will be administer 1 L normal saline, Reglan IV, Toradol IV and Valium. Will follow up response will provide pain management. Will order carotid Dopplers an echocardiogram however presentation is not consistent with TIA as initially considered in emergency room. He will follow-up LP microbiology reports (2) Anxiety Is this a current diagnosis for this admission?: Yes Plan: Likely contributing to presentation (3) Depression Qualifiers: Depression Type: unspecified Qualified Code(s): F32.9 - Major depressive disorder, single episode, unspecified Is this a current diagnosis for this admission?: Yes Plan: Will continue with Effexor as outpatient - Time Time Spent: 50 to 70 Minutes Medications reviewed and adjusted accordingly: Yes Anticipated discharge: Home Within: within 24 hours - Inpatient Certification Based on my medical assessment, after consideration of the patient's comorbidities, presenting symptoms, or acuity I expect that the services needed warrant INPATIENT care.: No I certify that my determination is in accordance with my understanding of Medicare's requirements for reasonable and necessary INPATIENT services [42 CFR 412.3e].: Yes Medical Necessity: Need Close Monitoring Due to Risk of Patient Decompensation, Need For IV Fluids, Need For Continuous Telemetry Monitoring
[2017-09-15] MEDS ORDERED: DIAZEPAM INJ 10 MG/2 ML DISP.SYRIN IV ONE (18:30)
[2017-09-15] MEDS ORDERED: KETOROLAC TROMETHAMINE INJ/PF 30 MG/1 ML SDV IV ONE (18:30)
[2017-09-15] MEDS: OXYCODONE-ACETAMINOPHEN 5-325 MG TABLET PO PRN (21:16)
[2017-09-15] MEDS: HEPARIN SOD (PORCINE) 5,000 UNIT/ML 1 ML SYRINGE SUBCUT SCH (21:17)
--- NOTE | 2017-09-15 21:22 | RADIOLOGY REPORT (SQ) ---
EXAM DESCRIPTION: CTA NECK COMPLETED DATE/TIME: 09/15/2017 7:01 pm REASON FOR STUDY: TIA symptoms COMPARISON: MRI brain from earlier. TECHNIQUE: Axial dynamic scanning technique with dynamic contrast enhancement through the extra-scrap hoist operator nial carotid and vertebral arteries. Multiplanar reconstruction. 3-D MIPS and Volume-rendered imag es acquired at the workstation and saved to PACS. Images are reviewed in soft tissue, bone, lung w indows. All CT scanners at this facility use dose modulation, iterative reconstruction, and/or weight based d osing when appropriate to reduce radiation dose to as low as reasonably achievable (ALARA). [facility]: Dose Right [facility]: CareDose [facility]: Dose Right [facility]: Teradose 4D [facility]: Darudar CONTRAST TYPE AND DOSE: contrast/concentration: Isovue 370.00 mg/ml; Total Contrast Delivered: 70.0 ml; Total Saline Delivered: 75.0 ml RENAL FUNCTION: GFR > 60. LIMITATIONS: None. FINDINGS: AORTIC ARCH: Normal three-vessel origin. Bilateral subclavian arteries are patent. No d issection. RIGHT CAROTIDS: Patent common, internal and external carotid arteries without suggestion of significa nt stenosis or irregular plaque. No dissection. RIGHT VERTEBRAL: Patent. No dissection. LEFT CAROTIDS: Patent common, internal and external carotid arteries without suggestion of significan t stenosis or irregular plaque. No dissection. LEFT VERTEBRAL: Patent. No dissection. OTHER: No other significant finding. OTHER: 3-D reconstructions confirm findings. IMPRESSION: NORMAL CTA OF THE EXTRA-CRANIAL CAROTID AND VERTEBRAL ARTERIES. COMMENT: Quality ID #[id number]: Measurements of distal internal carotid diameter were used as the denomina tor for stenosis measurement. TECHNICAL DOCUMENTATION: JOB ID: [id number] Quality ID # [id number]: Final reports with documentation of one or more dose reduction techniques (e.g., Au tomated exposure control, adjustment of the mA and/or kV according to patient size, use of iterative reconstruction technique) 2010 [employer]- All Rights Reserved Reading location - IP/workstation name: [email or web address]
[2017-09-15] MEDS ORDERED: ATORVASTATIN CALCIUM 80 MG TABLET PO SCH (22:00)
[2017-09-16] MEDS ORDERED: DIPHENHYDRAMINE HCL 25 MG CAPSULE PO PRN (01:11)
[2017-09-16] MEDS: OXYCODONE-ACETAMINOPHEN 5-325 MG TABLET PO PRN ×2 (01:34→05:56)
[2017-09-16 05:36] LABS: ABSOLUTE BASOPHILS # (AUTO) 0.1 10^3/uL (0.0-0.2); ABSOLUTE EOSINOPHILS # (AUTO) 0.1 10^3/uL (0.0-0.6); ABSOLUTE LYMPHOCYTES (AUTO) 1.4 10^3/uL (0.5-4.7); ABSOLUTE MONOCYTES (AUTO) 0.3 10^3/uL (0.1-1.4); ABSOLUTE NEUT (AUTO) 2.6 10^3/uL (1.7-8.2); BASOPHILS % (AUTO) 1.5 % (0-2); EOSINOPHILS % (AUTO) 2.2 % (0-6); HEMATOCRIT 38.5 % (36.0-47.0); HEMOGLOBIN 12.9 g/dL (12.0-15.5); LYMPHOCYTES % (AUTO) 30.1 % (13-45); MEAN CORPUSCULAR HEMOGLOBIN 28.3 pg (27.0-33.4); MEAN CORPUSCULAR HGB CONC 33.4 g/dL (32.0-36.0); MEAN CORPUSCULAR VOLUME 85 fl (80-97); MONOCYTES % (AUTO) 7.3 % (3-13); PLATELET COUNT 255 10^3/uL (150-450); RED BLOOD COUNT 4.55 10^6/uL (3.72-5.28); RED CELL DISTRIBUTION WIDTH 14.1 % (11.5-14.0); SEGMENTED NEUTROPHILS % (AUTO) 58.9 % (42-78); TOTAL CELLS COUNTED % (AUTO) 100 %; WHITE BLOOD COUNT 4.5 10^3/uL (4.0-10.5)
[2017-09-16] MEDS: HEPARIN SOD (PORCINE) 5,000 UNIT/ML 1 ML SYRINGE SUBCUT SCH (05:56)
[2017-09-16 06:03] LABS: ANION GAP 11 (5-19); BLOOD UREA NITROGEN 10 mg/dL (7-20); CALCIUM 9.8 mg/dL (8.4-10.2); CARBON DIOXIDE 25 mmol/L (22-30); CHLORIDE 105 mmol/L (98-107); GLUCOSE 85 mg/dL (75-110); POTASSIUM 4.1 mmol/L (3.6-5.0); SODIUM 141.2 mmol/L (137-145)
[2017-09-16 08:31] VITALS: BP 120/78
[2017-09-16] MEDS ORDERED: DOCUSATE SODIUM 100 MG CAPSULE PO SCH (10:00)
[2017-09-16] MEDS ORDERED: ASPIRIN 325 MG TABLET PO SCH (10:00)
--- NOTE | 2017-09-16 15:06 | PDOC DISCHARGE SUMMARY ---
General - Admit/Disc Date/PCP Admission Date/Primary Care Provider: 09/15/17 18:08 ARACELI PERSON, Discharge Date: 09/16/17 - Discharge Diagnosis (1) Headache Is this a current diagnosis for this admission?: Yes (2) Anxiety Is this a current diagnosis for this admission?: Yes (3) Depression Is this a current diagnosis for this admission?: Yes (4) History of Chiari malformation Is this a current diagnosis for this admission?: Yes (5) History of migraine Is this a current diagnosis for this admission?: Yes - Additional Information Resuscitation Status: Full Code Discharge Diet: Cardiac Discharge Activity: Activity As Tolerated Prescriptions: Butalbital/Aspirin/Caffeine [Fiorinal 50-325-40 mg Capsule] 1 cap PO Q4 PRN #30 cap PRN Reason: Tizanidine HCl [Zanaflex 4 Mg Tablet] 4 mg PO Q8H #15 tablet Home Medications: Dexlansoprazole [Dexilant 60 mg Capsule] 60 mg PO DAILY 04/04/13 Venlafaxine HCl [Effexor 75 mg Tablet] 150 mg PO DAILY #30 tablet 01/14/16 Aspirin [Ecotrin 81 mg EC Tablet] 81 mg PO DAILYP PRN 09/15/17 Furosemide 20 mg PO DAILYP PRN 09/15/17 Rosuvastatin Calcium [Crestor 20 mg Tablet] 20 mg PO DAILY 09/15/17 Butalbital/Aspirin/Caffeine [Fiorinal 50-325-40 mg Capsule] 1 cap PO Q4 PRN #30 cap 09/16/17 Tizanidine HCl [Zanaflex 4 Mg Tablet] 4 mg PO Q8H #15 tablet 09/16/17 History of Present Illness History of Present Illness: CIERRA SANTILLAN is a 52 year old female presented to ED complaining of headache mostly localized to the back of her head. Patient complained of fever , photophobia and nausea. She related having generalized weakness. She does have a history of migraine. Patient reported history of brain tumors and had undergone surgery. She is to follow-up with her neurologist (cannot remember his name) in November to see if she needs any further intervention. Patient related that she is under a lot of stress at home because they are about 8 people living in her household and do not want to move out. Patient denied cough, shortness of breath, chest pain, abdominal pain. Patient had extensive workup in the emergency room since at the beginning the possibility of of a stroke was entertained. Also an LP was obtained. After [facility] neurologist was consulted eventually and a CTA of the neck was recommended to evaluate for the possibility of a posterior stroke which was pending at the time of admission. Considering presentation our service was contacted and prompted to admit. Hospital Course Hospital Course: Patient was admitted to telemetry unit and remained stable. Patient's symptoms improved after she was treated with Toradol IV, Reglan IV, IV fluids and Valium p.o. On the day of discharge patient reported that pain was better and she was ready to be discharged. On the day of discharge prescribed Fioricet and muscle relaxer. Examination and workup was negative for TIA. Patient has also been advised as to follow-up with her primary care provider. Since patient had achieved maximum benefit of hospitalization stay prompted to discharge under stable condition. Physical Exam Vital Signs: Temp Pulse Resp BP Pulse Ox 97.5 F 72 12 108/73 100 09/16/17 04:36 09/16/17 04:36 09/16/17 04:36 09/16/17 04:36 09/16/17 04:36 Intake & Output 09/14/17 09/15/17 09/16/17 06:59 06:59 06:59 Intake Total 700 Balance 700 Weight 67.5 kg General appearance: PRESENT: cooperative, mild distress Head exam: PRESENT: atraumatic, normocephalic Eye exam: PRESENT: conjunctiva pink, EOMI, PERRLA Ear exam: PRESENT: normal external ear exam Mouth exam: PRESENT: moist Neck exam: PRESENT: full ROM. ABSENT: carotid bruit, JVD, lymphadenopathy, meningismus, tenderness, thyromegaly, tracheal deviation Respiratory exam: PRESENT: clear to auscultation dean Cardiovascular exam: PRESENT: RRR. ABSENT: diastolic murmur, systolic murmur Vascular exam: PRESENT: normal capillary refill GI/Abdominal exam: PRESENT: normal bowel sounds, soft. ABSENT: tenderness Extremities exam: PRESENT: full ROM. ABSENT: pedal edema Musculoskeletal exam: PRESENT: ambulatory Neurological exam: PRESENT: alert, awake, oriented to person, oriented to place , oriented to time, oriented to situation, CN II-XII grossly intact Psychiatric exam: PRESENT: depressed Skin exam: PRESENT: intact, normal color Results Laboratory Results: 09/16/17 04:18 09/16/17 04:18 09/16/17 09/16/17 04:18 04:18 WBC 4.5 RBC 4.55 Hgb 12.9 Hct 38.5 MCV 85 MCH 28.3 MCHC 33.4 RDW 14.1 H Plt Count 255 Seg Neutrophils % 58.9 Lymphocytes % 30.1 Monocytes % 7.3 Eosinophils % 2.2 Basophils % 1.5 Absolute Neutrophils 2.6 Absolute Lymphocytes 1.4 Absolute Monocytes 0.3 Absolute Eosinophils 0.1 Absolute Basophils 0.1 Sodium 141.2 Potassium 4.1 Chloride 105 Carbon Dioxide 25 Anion Gap 11 BUN 10 Creatinine 0.77 Est GFR ( Amer) > 60 Est GFR (Non-Af Amer) > 60 Glucose 85 Calcium 9.8 Magnesium 2.1 Impressions: Head CT 09/15/17 11:33 IMPRESSION: No significant intracranial abnormalities were identified. Other findings as noted above EVIDENCE OF ACUTE STROKE: NO. Brain MRI with MRA 09/15/17 13:11 IMPRESSION: NORMAL MRA OF THE [place]. Head MRI 09/15/17 13:11 IMPRESSION: POST SUBOCCIPITAL CRANIOTOMY FOR DECOMPRESSION OF A CHIARI I MALFORMATION. OTHERWISE, UNREMARKABLE MRI OF THE BRAIN WITHOUT AND WITH INTRAVENOUS GADOLINIUM CONTRAST. EVIDENCE OF ACUTE STROKE: NO. Lumbar Puncture 09/15/17 16:20 IMPRESSION: Lumbar puncture under fluoroscopy. No immediate complication. Neck CTA 09/15/17 17:07 IMPRESSION: NORMAL CTA OF THE EXTRA-CRANIAL CAROTID AND VERTEBRAL ARTERIES. Qualifiers - * PATEINT BEING DISCHARGED WITH ANY OF THE FOLLOWING DIAGNOSIS?: No Plan Discharge Plan: Less than 30 minutes Time Spent: Less than 30 Minutes
== END 2017-09-16 09:06 | disposition home or self-care (01) ==
LOC: ER 11:08 → INTOOBSV 18:08 → EH 18:08 → 3N 20:51
PROVIDERS: ADMIT Emergency Medicine; ATTEND Emergency Medicine
PROC: 009U3ZX Drainage of Spinal Canal, Percutaneous Approach, Diagnostic (ICD-10-PCS; principal; 2017-09-15)
PROC: B01BZZZ Fluoroscopy of Spinal Cord (ICD-10-PCS; 2017-09-15)
DX: G44.219 Episodic tension-type headache, not intractable (principal); F41.9 Anxiety disorder, unspecified; F32.9 Major depressive disorder, single episode, unspecified; H53.149 Visual discomfort, unspecified; Z86.69 Personal history of other diseases of the nervous system and sense organs; R50.9 Fever, unspecified; R11.0 Nausea; R53.1 Weakness; R53.83 Other fatigue; R47.01 Aphasia; R27.0 Ataxia, unspecified; R27.8 Other lack of coordination; J44.9 Chronic obstructive pulmonary disease, unspecified; M54.2 Cervicalgia; Z86.011 Personal history of benign neoplasm of the brain; Z98.890 Other specified postprocedural states; Z90.710 Acquired absence of both cervix and uterus; Z87.891 Personal history of nicotine dependence
CPT/HCPCS: 99285; 96361; 96374; 96375; 36415 ×2; 87070; 87205; 83605; 83735; 85025 ×2; 85610; 89050; 82945; 84157; 80048; 80053; 81001; 80307; 70553; 70544; 62270; 70450; 70498; G0378 ×3; A9577; A9270 ×5; J1644 ×2; J3360; J1200; J1885; J2765; J2405; J7030

== ENCOUNTER → 2018-07-05 | Outpatient (CLI) | payer MEDICAID, MEDICARE ==
--- NOTE | 2018-07-05 10:59 | RADIOLOGY REPORT (SQ) ---
EXAM DESCRIPTION: T SPINE AP/LAT COMPLETED DATE/TIME: 07/05/2018 9:59 am REASON FOR STUDY: THORACIC BACK PAIN COMPARISON: None. NUMBER OF VIEWS: Two views. TECHNIQUE: AP and lateral radiographic images acquired of the thoracic spine. LIMITATIONS: None. FINDINGS: MINERALIZATION: Normal. ALIGNMENT: Normal. No scoliosis. VERTEBRAE: No fracture or bone lesion. Maintained height, normal segmentation. DISCS: No significant loss of height or significant narrowing. No large osteophytes. HARDWARE: None in the spine. MEDIASTINUM AND SOFT TISSUES: Normal heart size and aortic contour. No soft tissue abnormality. VISUALIZED LUNG COE: Clear. OTHER: No other significant finding. IMPRESSION: NO SIGNIFICANT RADIOGRAPHIC FINDING IN THE THORACIC SPINE. TECHNICAL DOCUMENTATION: JOB ID: [id number] [employer]- All Rights Reserved Reading location - IP/workstation name: [email or web address]
== END ==
LOC: OD 09:49
PROVIDERS: ATTEND Student in an Organized Health Care Education/Training Program
DX: M54.6 Pain in thoracic spine (principal)
CPT/HCPCS: 72070

== ENCOUNTER 2018-08-24 08:02 | Emergency (ER) | payer OTHER, MEDICARE ==
[2018-08-24] MEDS ORDERED: FENTANYL CITRATE INJ/PF 100 MCG/2 ML AMPUL IV ONE (08:42)
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
[2018-08-24] MEDS ORDERED: ONDANSETRON 4 MG TAB.RAPDIS PO ONE (09:44)
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
[2018-08-24] MEDS ORDERED: HYDROCODONE/ACETAMINOPHEN 7.5-325 MG TABLET PO ONE (09:55)
[2018-08-24] MEDS ORDERED: CYCLOBENZAPRINE HCL 10 MG TABLET PO ONE (09:55)
[2018-08-24 10:35] LABS: AMORPHOUS SEDIMENT,URINE TRACE /HPF; APPEARANCE,URINE CLEAR; BILIRUBIN,URINE NEGATIVE (NEGATIVE); COLOR,URINE STRAW; GLUCOSE, URINE NEGATIVE (NEGATIVE); KETONES,URINE NEGATIVE (NEGATIVE); LEUKOCYTE ESTERASE,URINE NEGATIVE (NEGATIVE); NITRITE,URINE NEGATIVE (NEGATIVE); PROTEIN,URINE NEGATIVE (NEGATIVE); URINE SPECIFIC GRAVITY 1.004; UROBILINOGEN,URINE NEGATIVE mg/dL (<2.0)
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
[2018-08-24 12:00] VITALS: BP 165/83
== END 2018-08-24 12:31 | disposition home or self-care (01) ==
LOC: ER 08:02
DX: M54.2 Cervicalgia (principal); R51 Headache; M54.6 Pain in thoracic spine; M54.5 Low back pain; V87.7XXA Person injured in collision between other specified motor vehicles (traffic), initial encounter; I25.10 Atherosclerotic heart disease of native coronary artery without angina pectoris; J45.909 Unspecified asthma, uncomplicated; Z79.899 Other long term (current) drug therapy
CPT/HCPCS: 99284; 81001; 72110; 72070; 70450; 72125; S0119

== ENCOUNTER → 2020-05-18 | Outpatient (CLI) | payer MEDICARE, MEDICAID ==
--- NOTE | 2020-05-18 11:50 | WOMENS IMAGING REPORT ---
EXAM DESCRIPTION: 3D SCREENING MAMMO BILAT IMAGES COMPLETED DATE/TIME: 05/18/2020 10:13 am REASON FOR STUDY: ROUTINE BILATERAL SCREENING;Z12.31 Z12.31 ENCNTR SCREEN MAMMOGRAM FOR MALIGNANT N EOPLASM OF GILMAR COMPARISON: 2017 and subsequent. EXAM PARAMETERS: Views: Standard craniocaudal and mediolateral oblique views of each breast recorded using digital acquisition and breast tomosynthesis. Read with the assistance of CAD. .[facility] - [employer] Version 9.2 LIMITATIONS: None. FINDINGS: No suspicious masses, suspicious calcifications or architectural distortion. No areas of c oncern. IMPRESSION: NEGATIVE MAMMOGRAM. BIRADS 1. BREAST DENSITY: b. There are scattered areas of fibroglandular density. BIRAD: ASSESSMENT: 1 NEGATIVE RECOMMENDATION: ROUTINE SCREENING COMMENT: The patient has been notified of the results by letter per MQSA requirements. Additional no tification policies are in place for contacting patient with suspicious or incomplete findings. Quality ID #[id number]: The [employer] recommends an annual screening mammogram for women aged 40 years or over. This facility utilizes a reminder system to ensure that all patients receive reminder letters, and/or direct phone calls for appointments. This includes reminders for routine scr eening mammograms, diagnostic mammograms, or other Breast Imaging Interventions when appropriate. Th is patient will be placed in the appropriate reminder system. TECHNICAL DOCUMENTATION: FINDING NUMBER: (1) ASSESSMENT: (1) JOB ID: [id number] 2010 [employer]- All Rights Reserved Reading location - IP/workstation name: [email or web address]
== END ==
LOC: WI 11:40
PROVIDERS: ATTEND Physician Assistant
DX: Z12.31 Encounter for screening mammogram for malignant neoplasm of breast (principal)
CPT/HCPCS: 77063; 77067